=== PATIENT | female | born 1980 | race African-American/Black ===

== ENCOUNTER 2019-04-28 19:50 | Observation (INO) | payer MEDICAID ==
[~2019-04-28] VITALS: Ht 172.7 cm; Wt 123.4 kg
[2019-04-28] MEDS ORDERED: SODIUM CHLORIDE 0.9% 500 ML IV ONE (21:00)
[2019-04-28] MEDS ORDERED: SODIUM CHLORIDE 0.9% 1,000 ML IV SCH (21:00)
[2019-04-28 21:53] LABS: CLARITY URINE CLEAR (CLEAR); COLOR URINE YELLOW (YELLOW); KETONES URINE TRACE (NEGATIVE); LEUKOCYTE ESTERASE URINE NEGATIVE (NEGATIVE); NITRITE URINE NEGATIVE (NEGATIVE); OCCULT BLOOD URINE NEGATIVE (NEGATIVE); PH URINE 5.5 (4.5-8.0); PROTEIN URINE TRACE (NEGATIVE); SPECIFIC GRAVITY URINE 1.042 (1.005-1.030); UROBILINOGEN URINE 0.2 E.U./dL (0.2-1.0)
[2019-04-28] MEDS ORDERED: TERBUTALINE SULFATE 1MG/ML VIAL SUBCUT NR (22:30)
[2019-04-28] MEDS ORDERED: PREN-176 PO (23:02)
[2019-04-28] MEDS ORDERED: Seroquel (23:02)
== END 2019-04-28 23:40 | disposition home or self-care (01) ==
LOC: 8 EST LDRP 19:50
PROVIDERS: ADMIT Specialist; ATTEND Specialist
DX: O26.893 Other specified pregnancy related conditions, third trimester (principal); R10.30 Lower abdominal pain, unspecified; Z3A.36 36 weeks gestation of pregnancy
CPT/HCPCS: 81003; 96372; 99281; G0378; J3105; 96360